=== PATIENT | female | born 1980 | race Caucasian/White ===

== ENCOUNTER → 2022-09-24 | Emergency (ER) | payer MEDICAID ==
[~2022-09-24] VITALS: Ht 160 cm; Wt 99.0 kg
[~2022-09-24] MED LIST: IBUP-1986 PO; TRAM50TA2 PO; ketorolac trometh inj. 60 MG/2 ML VIAL IM ONE
[2022-09-24 10:34] VITALS: BP 121/79
== END | disposition home or self-care (01) ==
LOC: ER 09:56
DX: M77.8 Other enthesopathies, not elsewhere classified (principal); M25.511 Pain in right shoulder; Z88.6 Allergy status to analgesic agent
CPT/HCPCS: 73030; 96372; 99283; J1885; A4565